=== PATIENT | female | born 1995 | race African-American/Black ===

== ENCOUNTER 2018-09-01 17:10 | Emergency (ER) | payer OTHER, SELFPAY ==
[2018-09-01 17:54] LABS: Bilirubin Small (Negative); Blood, Urine Moderate (Negative); Glucose, Urine (Dipstick) Negative (Negative); Leukocyte Negative (Negative); Nitrite Negative (Negative); Protein, Urine (Dipstick) 30 mg/dL (Neg-Trace)
[2018-09-01 17:56] LABS: Clarity Hazy (Clear); Specific Gravity, Urine 1.025 (1.002-1.036)
[2018-09-01 17:57] LABS: Pregnancy Test - Urine (BHCG) Negative (Negative); Pregu Control Background? CLEAR/WHITE (CLR/WHITE); Pregu Control Bar Appear? YES (CONTROL BAR); Specific Gravity 1.025 (1.002-1.036)
[2018-09-01 18:00] LABS: WBC/HPF None Seen HPF (0-3)
[2018-09-01 18:01] LABS: Bacteria/HPF 1+ HPF (None Seen)
--- NOTE | 2018-09-01 19:10 | RAD ---
THREE VIEWS RIGHT FOOT: 09/01/18 HISTORY: Right foot pain. AP, lateral, and oblique views right foot demonstrates no evidence of right foot fractures, subluxati ons or bone lesions. IMPRESSION: Normal three views right foot. POS: [facility]
--- NOTE | 2018-09-01 19:12 | RAD ---
AP VIEW CHEST: HISTORY: Chest and abdominal pain. AP view chest as well as supine and upright views of the abdomen. AP view chest is unremarkable. No evidence of acute intrathoracic abnormality seen. Supine and upright views of the abdomen demonstrate the abdominal gas pattern to be unremarkable. No evidence of bowel obstruction or ileus seen. No dilated loops of bowel seen. IMPRESSION: Unremarkable AP view chest and two views abdomen. POS: [facility]
== END 2018-09-01 19:20 | disposition home or self-care (01) ==
LOC: SCSER 17:10
DX: R10.12 Left upper quadrant pain (principal); R10.32 Left lower quadrant pain; R10.31 Right lower quadrant pain; M25.571 Pain in right ankle and joints of right foot; R51 Headache; R11.0 Nausea; J45.909 Unspecified asthma, uncomplicated; F41.9 Anxiety disorder, unspecified; F32.9 Major depressive disorder, single episode, unspecified
CPT/HCPCS: 74022; 81003; 81015; 81025